=== PATIENT | female | born 1985 | race Caucasian/White ===

== ENCOUNTER 2024-01-07 12:28 | Emergency (ER) | payer BC, OTHER ==
[~2024-01-07] VITALS: Ht 162.6 cm; Wt 84.8 kg
[~2024-01-07 12:28] MED LIST: DEPO SHOT
[2024-01-07 12:43] VITALS: TEMP 98.4; O2SAT 99
[2024-01-07 13:51] LABS: BASOPHILS % 0.5 % (0.0-2.0); EOSINOPHILS % 0.8 % (0.0-5.0); HEMATOCRIT. 36.8 % (36.0-48.0); HEMOGLOBIN. 12.4 g/dL (12.0-16.0); LYMPHOCYTES % 25.6 % (20.0-50.0); MEAN CORPUSCULAR HEMOGLOBIN 29.7 pg (28.0-32.0); MEAN CORPUSCULAR HGB CONC 33.6 g/dL (31.0-37.0); MEAN CORPUSCULAR VOLUME 88.6 fL (81.0-99.0); MEAN PLATELET VOLUME 8.4 fl (7.4-10.4); MONOCYTES % 6.7 % (2.0-8.0); NEUTROPHILS % 66.4 % (40.0-76.0); PLATELET 291 x1000/uL (130-400); RED BLOOD CELL COUNT 4.16 mill/uL (4.2-5.4); RED CELL DISTRIBUTION WIDTH 13.5 % (11.6-14.6); WHITE BLOOD COUNT 6.1 x1000/uL (4.5-11.0)
[2024-01-07 14:02] LABS: CHLORIDE 109 mEq/L (98-107); POTASSIUM 3.9 mEq/L (3.5-5.1); SODIUM 141 mEq/L (136-145)
[2024-01-07 14:03] LABS: CALCIUM 8.8 mg/dL (8.7-10.4); CARBON DIOXIDE 26 mEq/L (21-32)
[2024-01-07 14:08] LABS: CREATININE 0.9 mg/dL (0.6-1.0); GLUCOSE 91 mg/dL (70-105); UREA NITROGEN BLOOD 10 mg/dL (9-23)
[2024-01-07 14:09] LABS: B-HCG QUANTITATIVE 15 mIU/mL (<3)
[2024-01-07 14:10] LABS: ALANINE AMINOTRANSFERASE 23 IU/L (10-49); ALBUMIN 4.7 g/dL (3.2-4.8); ASPARTATE AMINOTRANSFERASE 22 IU/L (<34); BILIRUBIN TOTAL 0.3 mg/dL (0.1-1.0); PROTEIN TOTAL 7.5 g/dL (6.0-8.3)
[2024-01-07 14:49] VITALS: BP 135/78; PULSE 75; RESP 14
== END 2024-01-07 14:50 | disposition home or self-care (01) ==
LOC: ER 12:28
DX: O20.0 Threatened abortion (principal); Z3A.01 Less than 8 weeks gestation of pregnancy
CPT/HCPCS: 36415; 76830; 76856; 80053; 84702; 85025; 86850; 86900; 99284

== ENCOUNTER 2024-07-10 17:31 | Emergency (ER) | payer OTHER ==
[~2024-07-10] VITALS: Ht 162.6 cm; Wt 81.0 kg
[2024-07-10 17:45] VITALS: O2SAT 97
[2024-07-10] MEDS ORDERED: IBUP-2028 MT (18:28)
[2024-07-10] MEDS ORDERED: TOPUD PO (18:28)
[2024-07-10] MEDS: IBUPROFEN 400MG TABLET PO ONE (18:30)
[2024-07-10 19:34] VITALS: BP 148/87; PULSE 82; RESP 16; TEMP 36.89184; O2SAT 97
== END 2024-07-10 19:35 | disposition home or self-care (01) ==
LOC: ER 17:31
DX: S93.401A Sprain of unspecified ligament of right ankle, initial encounter (principal); Y93.89 Activity, other specified; Y92.89 Other specified places as the place of occurrence of the external cause; Y99.8 Other external cause status
CPT/HCPCS: 81025; 73610; 99283; Z7610